=== PATIENT | male | born 1955 | race Hispanic/Latino ===

== ENCOUNTER 2018-10-04 10:55 | Emergency (ER) | payer OTHER | END 2018-10-04 12:57 | disposition home or self-care (01) | LOC: EDH 10:55 | DX: K13.70 Unspecified lesions of oral mucosa (principal); Z85.810 Personal history of malignant neoplasm of tongue; Z98.890 Other specified postprocedural states; Z87.891 Personal history of nicotine dependence | CPT/HCPCS: 99281 ==